=== PATIENT | female | born 1995 | race Caucasian/White ===

== ENCOUNTER 2017-12-08 14:39 | Emergency (ER) | payer MEDICARE ==
[~2017-12-08] VITALS: Ht 167.6 cm; Wt 136.5 kg
[2017-12-08 14:44] VITALS: BP 140/87
[2017-12-08 16:12] LABS: BASOPHILS % (AUTO) 0.6 % (0.0-2.0); EOSINOPHILS # (AUTO) 0.3 K/uL (0-0.4); HEMATOCRIT 30.3 % (36-48); LYMPHOCYTES # (AUTO) 1.8 K/uL (2.5-16.5); LYMPHOCYTES % (AUTO) 24.1 % (20.5-51.1); MEAN CORPUSCULAR HEMOGLOBIN 20 pg (27-31); MEAN CORPUSCULAR HGB CONC 30 g/dL (33-37); MEAN CORPUSCULAR VOLUME 67.8 fL (80-94); MONOCYTES # (AUTO) 0.6 K/uL (0.8-1.0); MONOCYTES % (AUTO) 7.2 % (1.7-9.3); NEUTROPHILS # (AUTO) 4.9 K/uL (1.8-7.7); NEUTROPHILS % (AUTO) 64.1 % (42.2-75.2); PLATELET COUNT (AUTO) 258 K/uL (140-450); RED BLOOD CELL COUNT(AUTO) 4.47 MIL/uL (4.20-5.40); RED CELL DISTRIBUTION WIDTH 19.3 % (11.6-13.7); WHITE BLOOD COUNT (AUTO) 7.7 K/uL (4.8-10.8)
[2017-12-08 16:30] LABS: BILIRUBIN,URINE 1+ (NEGATIVE); BLOOD, URINE 3+ (NEGATIVE); UGLUCOSE NEGATIVE (NEGATIVE)
[2017-12-08 16:34] LABS: ANION GAP 7.4 (8-16); CARBON DIOXIDE 29.5 mmol/L (21-32); CREATININE 0.7 mg/dL (0.6-1.3); POTASSIUM 3.9 mmol/L (3.5-5.1)
[2017-12-08 16:34] LABS: APPEARANCE,URINE HAZY (CLEAR); COLOR,URINE RED (YELLOW)
[2017-12-08 16:39] LABS: ALBUMIN 3.3 g/dL (3.4-5.0); TOTAL BILIRUBIN 0.2 mg/dL (0.0-1.0)
[2017-12-08 16:52] LABS: LEUKOCYTE ESTERASE ,URINE TRACE (NEGATIVE); NITRITE, URINE POSITIVE (NEGATIVE); RBC,URINE TOO NUMEROUS TO COUN /HPF (0-5)
[2017-12-08 17:12] VITALS: BP 138/84
== END 2017-12-08 17:12 | disposition home or self-care (01) ==
LOC: MED 14:39
DX: O46.91 Antepartum hemorrhage, unspecified, first trimester (principal); Z3A.01 Less than 8 weeks gestation of pregnancy
CPT/HCPCS: 36415; 76801; 80053; 81001; 81025; 84702; 85025; 86900; 86901; 87086; 99285; Q0092

== ENCOUNTER 2018-07-08 10:09 | Emergency (ER) | payer MEDICAID, MEDICARE ==
[~2018-07-08] VITALS: Ht 167.6 cm; Wt 128.8 kg
[2018-07-08 10:19] VITALS: BP 144/77
--- NOTE | 2018-07-08 10:26 | NUR ---
Patient ambulated to bed 5 at this time.
--- NOTE | 2018-07-08 10:27 | NUR ---
PATIENT PRESENTS TO ED WITH C/O SORE THROAT X 1 WEEK. PT STATES IT HURT WHEN SHE SWALLOWS AND THEY FEEL BRUISED. PT ALSO STATES SHE HAS DISCOMFORT AND DISCHARGE FOR VAGINAL AREA X 1 WEEK AND A HALF, FREQUENCY URINATION, NO BURNING WITH URINATION. DENIES N/V/D; SKIN IS PINK/WARM/DRY; AAOX4 WITH EVEN AND STEADY GAIT; LUNGS CLEAR BL; HR EVEN AND REGULAR; PT DENIES ANY FEVER, CP, SOB, OR COUGH AT THIS TIME; PATIENT STATES PAIN OF 10/10 AT THIS TIME; VSS; PATIENT POSITIONED FOR COMFORT; HOB ELEVATED; BEDRAILS UP X2; BED DOWN. ER MD MADE AWARE OF PT STATUS.
--- NOTE | 2018-07-08 10:36 | NUR ---
Patient being evaluated by physician at bedside.
[2018-07-08] MEDS ORDERED: KETOROLAC 60 MG/2 ML VIAL IM ONE (10:40)
--- NOTE | 2018-07-08 10:40 | NUR ---
PATIENT MOVED TO BED 6 AT THIS TIME.
[2018-07-08 11:00] VITALS: BP 136/75
--- NOTE | 2018-07-08 11:00 | NUR ---
Patient discharged with v/s stable. Written and verbal after care instructions given and explained. Patient alert, oriented and verbalized understanding of instructions. Ambulatory with steady gait. All questions addressed prior to discharge. ID band removed. Patient advised to follow up with PMD. Rx of MOTRIN, PREDNISONE given. Patient educated on indication of medication including possible reaction and side effects. Opportunity to ask questions provided and answered.
== END 2018-07-08 11:00 | disposition home or self-care (01) ==
LOC: MED 10:09
DX: J02.9 Acute pharyngitis, unspecified (principal)
CPT/HCPCS: 81002; 81025; 96372; 99283; J1885

== ENCOUNTER 2018-10-11 17:18 | Emergency (ER) | payer MEDICAID ==
[~2018-10-11] VITALS: Ht 167.6 cm; Wt 128.8 kg
[2018-10-11 17:28] VITALS: BP 100/50
--- NOTE | 2018-10-11 17:37 | NUR ---
VSS, PATIENT AMBULATED TO LOBBY, NO SIGNS OF DISTRESS.
--- NOTE | 2018-10-11 18:53 | NUR ---
C/O: SEVERE EAR PAIN ON THE LEFT EAR, THE PT CANT HEAR FROM THE LEFT EAR. OTHER EAR IS STARTING TO BE PAINFUL WELL. HAS HAD A COLD FOR A MONTH. DENIES N/V/D; SKIN IS PINK/WARM/DRY; AAOX4 WITH EVEN AND STEADY GAIT; LUNGS CLEAR BL; HR EVEN AND REGULAR; PT DENIES ANY FEVER, CP, SOB, OR COUGH AT THIS TIME; PATIENT STATES PAIN OF 10/10 AT THIS TIME; VSS; PATIENT POSITIONED FOR COMFORT; HOB ELEVATED; BEDRAILS UP X2; BED DOWN. ER MD MADE AWARE OF PT STATUS.
--- NOTE | 2018-10-11 19:10 | NUR ---
endorsed pt to a[facility] momin.
[2018-10-11 19:45] VITALS: BP 130/70
--- NOTE | 2018-10-11 19:45 | NUR ---
Patient discharged with v/s stable. Written and verbal after care instructions given and explained. Patient alert, oriented and verbalized understanding of instructions. Ambulatory with steady gait. All questions addressed prior to discharge. ID band removed. Patient advised to follow up with PMD. Rx of Amoxcillin 500mg given. Patient educated on indication of medication including possible reaction and side effects. Opportunity to ask questions provided and answered.
== END 2018-10-11 19:45 | disposition home or self-care (01) ==
LOC: MED 17:18
DX: H66.92 Otitis media, unspecified, left ear (principal)
CPT/HCPCS: 99283

== ENCOUNTER 2018-11-12 15:31 | Emergency (ER) | payer MEDICAID, OTHER ==
[~2018-11-12] VITALS: Ht 167.6 cm; Wt 129.3 kg
[2018-11-12 15:35] VITALS: BP 100/67
--- NOTE | 2018-11-12 15:35 | NUR ---
Robin boland in [facility] - 11/12/18 at 1621 by JACK DAVE AT BEDSIDE
[2018-11-12] MEDS ORDERED: NACL 0.9% 1,000 ML IV ONE (15:45)
[2018-11-12] MEDS ORDERED: ACETAMINOPHEN EXTRA STRENGTH 500 MG TAB PO ONE (15:45)
[2018-11-12] MEDS ORDERED: IBUPROFEN 600 MG TAB PO ONE (15:45)
[2018-11-12 16:07] LABS: BASOPHILS % (AUTO) 0.3 % (0.0-2.0); EOSINOPHILS % (AUTO) 0.1 % (0.0-4.0); HEMATOCRIT 32.3 % (36-48); HEMOGLOBIN 9.9 g/dL (12.0-16.0); LYMPHOCYTES # (AUTO) 0.7 K/uL (2.5-16.5); LYMPHOCYTES % (AUTO) 6.5 % (20.5-51.1); MEAN CORPUSCULAR HEMOGLOBIN 21 pg (27-31); MEAN CORPUSCULAR HGB CONC 31 g/dL (33-37); MEAN CORPUSCULAR VOLUME 69.4 fL (80-94); MONOCYTES % (AUTO) 9.2 % (1.7-9.3); NEUTROPHILS # (AUTO) 9.1 K/uL (1.8-7.7); NEUTROPHILS % (AUTO) 83.9 % (42.2-75.2); PLATELET COUNT (AUTO) 216 K/uL (140-450); RED BLOOD CELL COUNT(AUTO) 4.65 MIL/uL (4.20-5.40); RED CELL DISTRIBUTION WIDTH 19.4 % (11.6-13.7); WHITE BLOOD COUNT (AUTO) 10.9 K/uL (4.8-10.8)
[2018-11-12 16:08] LABS: APPEARANCE,URINE SL CLOUDY (CLEAR); BILIRUBIN,URINE NEGATIVE (NEGATIVE); BLOOD, URINE 2+ (NEGATIVE); COLOR,URINE YELLOW (YELLOW); LEUKOCYTE ESTERASE ,URINE 2+ (NEGATIVE); NITRITE, URINE POSITIVE (NEGATIVE); UGLUCOSE NEGATIVE (NEGATIVE)
--- NOTE | 2018-11-12 16:13 | NUR ---
23 YO F BIB SELF WITH CHIEF C/O FEVER, HEADACHE, BILATERAL LOWER BACK PAIN, INCREASED URINARY FREQUENCY X 1 DAY. PT CURRENT TEMPERATURE 102.7 ORAL. PT REPORTS NAUSEA, DENIES VOMITING, DIARRHEA. URINE SAMPLE OBTAINED.
[2018-11-12 16:17] LABS: WBC,URINE TOO MANY TO COUNT /HPF (0-5)
[2018-11-12 16:21] LABS: ALBUMIN 2.8 g/dL (3.4-5.0); ANION GAP 11.9 (8-16); CARBON DIOXIDE 23.7 mmol/L (21-32); CREATININE 0.9 mg/dL (0.6-1.3); POTASSIUM 3.6 mmol/L (3.5-5.1); TOTAL BILIRUBIN 0.4 mg/dL (0.0-1.0)
[2018-11-12] MEDS ORDERED: cefTRIAXone 1,000 MG VIAL ONE (16:46)
--- NOTE | 2018-11-12 17:04 | NUR ---
PT A/O X4. TEMP. 100.1 ORAL. MEDICATION ADMINISTERED ORDERED.
--- NOTE | 2018-11-12 18:13 | NUR ---
PT VERBALIZED FEELING BETTER, DENIES ANY PAIN AT THIS TIME. TEMP DECREASED TO 98.8 ORAL.
[2018-11-12 18:50] VITALS: BP 118/70
--- NOTE | 2018-11-12 18:50 | NUR ---
Patient discharged with v/s stable. Written and verbal after care instructions given and explained. Patient alert, oriented and verbalized understanding of instructions. Ambulatory with steady gait. All questions addressed prior to discharge. ID band removed. Patient advised to follow up with PMD. Rx of cipro, motrin given. Patient educated on indication of medication including possible reaction and side effects. Opportunity to ask questions provided and answered.
== END 2018-11-12 18:50 | disposition home or self-care (01) ==
LOC: MED 15:31
DX: N12 Tubulo-interstitial nephritis, not specified as acute or chronic (principal)
CPT/HCPCS: 36415; 80053; 81001; 81025; 85025; 87086; 87186; 96365; 99283; J0696; J7030; J7060

== ENCOUNTER 2019-02-10 17:02 | Emergency (ER) | payer MEDICAID, OTHER ==
[~2019-02-10] VITALS: Ht 167.6 cm; Wt 132.1 kg
[2019-02-10 17:18] VITALS: BP 137/78
--- NOTE | 2019-02-10 17:30 | NUR ---
C/O ABDOMINAL CRAMPING AND VAGINAL DISCHARGE X1 WKS, +N/V/D, +LIGHTHEADACHE. HX OF ANEMIA.DENIES N/V/D; SKIN IS PINK/WARM/DRY; AAOX4 WITH EVEN AND STEADY GAIT; LUNGS CLEAR BL; HR EVEN AND REGULAR; PT DENIES ANY FEVER, CP, SOB, OR COUGH AT THIS TIME; PATIENT STATES PAIN OF 9/10 AT THIS TIME; VSS; PATIENT POSITIONED FOR COMFORT; HOB ELEVATED; BEDRAILS UP X2; BED DOWN. ER MD MADE AWARE OF PT STATUS.
[2019-02-10 18:18] LABS: BASOPHILS % (AUTO) 0.4 % (0.0-2.0); EOSINOPHILS # (AUTO) 0.1 K/uL (0-0.4); EOSINOPHILS % (AUTO) 1.4 % (0.0-4.0); HEMOGLOBIN 10.8 g/dL (12.0-16.0); LYMPHOCYTES # (AUTO) 1.9 K/uL (2.5-16.5); LYMPHOCYTES % (AUTO) 22.2 % (20.5-51.1); MEAN CORPUSCULAR HEMOGLOBIN 22 pg (27-31); MEAN CORPUSCULAR HGB CONC 31 g/dL (33-37); MEAN CORPUSCULAR VOLUME 71.9 fL (80-94); MONOCYTES # (AUTO) 0.6 K/uL (0.8-1.0); MONOCYTES % (AUTO) 7.1 % (1.7-9.3); NEUTROPHILS % (AUTO) 68.9 % (42.2-75.2); PLATELET COUNT (AUTO) 213 K/uL (140-450); RED BLOOD CELL COUNT(AUTO) 4.86 MIL/uL (4.20-5.40); WHITE BLOOD COUNT (AUTO) 8.7 K/uL (4.8-10.8)
[2019-02-10 18:26] LABS: APPEARANCE,URINE CLEAR (CLEAR); BILIRUBIN,URINE NEGATIVE (NEGATIVE); BLOOD, URINE NEGATIVE (NEGATIVE); COLOR,URINE YELLOW (YELLOW); LEUKOCYTE ESTERASE ,URINE NEGATIVE (NEGATIVE); NITRITE, URINE NEGATIVE (NEGATIVE); UGLUCOSE NEGATIVE (NEGATIVE)
--- NOTE | 2019-02-10 18:29 | NUR ---
Dr. Benites, accompanied by female harvest field ticketer, at bedside for pelvic exam.
[2019-02-10 18:32] LABS: ALBUMIN 3.2 g/dL (3.4-5.0); ANION GAP 11.6 (8-16); CREATININE 0.7 mg/dL (0.6-1.3); POTASSIUM 3.6 mmol/L (3.5-5.1); TOTAL BILIRUBIN 0.2 mg/dL (0.0-1.0)
--- NOTE | 2019-02-10 19:09 | NUR ---
ENDORSED TO PM NURSE.
[2019-02-10 20:14] VITALS: BP 137/78
--- NOTE | 2019-02-10 20:14 | NUR ---
Patient discharged with v/s stable. Written and verbal after care instructions given and explained. Patient verbalized understanding. Ambulatory with steady gait. All questions addressed prior to discharge. Advised to follow up with PMD.
[2019-02-12 06:25] LABS: CHLAMYDIA TRACHOMATIS AMP DNA Negative (Negative)
== END 2019-02-10 20:14 | disposition home or self-care (01) ==
LOC: MED 17:02
DX: O20.0 Threatened abortion (principal); Z3A.01 Less than 8 weeks gestation of pregnancy
CPT/HCPCS: 36415; 76801; 80053; 81003; 81025; 84702; 85025; 87210; 87491; 99284; Q0092

== ENCOUNTER 2019-02-18 18:11 | Emergency (ER) | payer OTHER ==
[~2019-02-18] VITALS: Ht 167.6 cm; Wt 131.1 kg
[2019-02-18 18:48] VITALS: BP 133/78
--- NOTE | 2019-02-18 19:30 | NUR ---
23/F CC DIZZINESS. CURRENTLY 5 WEEKS. A0. AOX4. ABLE TO VERBALIZE NEEDS. NO SIGNS OF ACUTE DISTRESS AT THIS TIME. WILL CONTINUE TO OBSERVE.
[2019-02-18 19:33] LABS: BASOPHILS % (AUTO) 0.5 % (0.0-2.0); EOSINOPHILS # (AUTO) 0.1 K/uL (0-0.4); EOSINOPHILS % (AUTO) 1.2 % (0.0-4.0); HEMOGLOBIN 11.2 g/dL (12.0-16.0); LYMPHOCYTES # (AUTO) 1.4 K/uL (2.5-16.5); LYMPHOCYTES % (AUTO) 18.4 % (20.5-51.1); MEAN CORPUSCULAR HEMOGLOBIN 23 pg (27-31); MEAN CORPUSCULAR HGB CONC 31 g/dL (33-37); MEAN CORPUSCULAR VOLUME 72.4 fL (80-94); MONOCYTES # (AUTO) 0.4 K/uL (0.8-1.0); MONOCYTES % (AUTO) 5.5 % (1.7-9.3); NEUTROPHILS # (AUTO) 5.5 K/uL (1.8-7.7); NEUTROPHILS % (AUTO) 74.4 % (42.2-75.2); PLATELET COUNT (AUTO) 221 K/uL (140-450); RED BLOOD CELL COUNT(AUTO) 4.97 MIL/uL (4.20-5.40); RED CELL DISTRIBUTION WIDTH 21.6 % (11.6-13.7); WHITE BLOOD COUNT (AUTO) 7.4 K/uL (4.8-10.8)
--- NOTE | 2019-02-18 19:38 | NUR ---
US AT BEDSIDE
[2019-02-18 19:48] LABS: APPEARANCE,URINE CLEAR (CLEAR); BILIRUBIN,URINE 1+ (NEGATIVE); BLOOD, URINE NEGATIVE (NEGATIVE); COLOR,URINE YELLOW (YELLOW); LEUKOCYTE ESTERASE ,URINE NEGATIVE (NEGATIVE); NITRITE, URINE NEGATIVE (NEGATIVE); UGLUCOSE NEGATIVE (NEGATIVE)
[2019-02-18 21:35] VITALS: BP 133/78
== END 2019-02-18 21:32 | disposition home or self-care (01) ==
LOC: MED 18:11
DX: O26.891 Other specified pregnancy related conditions, first trimester (principal); R10.30 Lower abdominal pain, unspecified; R42 Dizziness and giddiness; Z3A.01 Less than 8 weeks gestation of pregnancy
CPT/HCPCS: 36415; 76817; 81003; 84702; 85025; 86900; 86901; 99284; Q0092

== ENCOUNTER 2019-03-05 23:17 | Emergency (ER) | payer OTHER ==
[~2019-03-05] VITALS: Ht 167.6 cm; Wt 132.9 kg
[2019-03-05 23:17] VITALS: BP 122/92
--- NOTE | 2019-03-05 23:19 | NUR ---
PT BIBA WITH C/O DIZZINESS, N/V , EPIGASTRIC PAIN TODAY.PT STATED SHE IS , 2 MONTHS LMP IS December. PT IS ALERT AND ORIENT X 4. PT PAIN LEVEL IS 8/10 AT THIS TIME. PT STATED SHE IS NOT CURRENTLY WITH AN OBGYN FOR OUTPATIENT CARE. PT IS CURRENTLY TAKING IRON PILLS BUT DENIES TAKING VITAMINS. ER MD MADE AWARE OF STATUS, SAFETY MEASURES IN PLACE. CONTINUE TO MONITOR. NKA PREVIOUS MEDICAL HX IS ANEMIA
--- NOTE | 2019-03-05 23:23 | NUR ---
PT BIBA TO BED 08.
[2019-03-05 23:51] LABS: BASOPHILS # (AUTO) 0.1 K/uL (0.00-0.22); BASOPHILS % (AUTO) 0.6 % (0.0-2.0); EOSINOPHILS # (AUTO) 0.1 K/uL (0-0.4); HEMATOCRIT 35.9 % (36-48); MONOCYTES # (AUTO) 0.6 K/uL (0.8-1.0); NEUTROPHILS % (AUTO) 70.8 % (42.2-75.2)
[2019-03-05 23:52] LABS: BILIRUBIN,URINE NEGATIVE (NEGATIVE); BLOOD, URINE NEGATIVE (NEGATIVE); COLOR,URINE YELLOW (YELLOW); LEUKOCYTE ESTERASE ,URINE TRACE (NEGATIVE); NITRITE, URINE NEGATIVE (NEGATIVE); UGLUCOSE NEGATIVE (NEGATIVE)
[2019-03-05 23:56] LABS: APPEARANCE,URINE CLEAR (CLEAR)
[2019-03-05 23:57] LABS: EOSINOPHILS % (AUTO) 1.3 % (0.0-4.0); HEMOGLOBIN 11.3 g/dL (12.0-16.0); LYMPHOCYTES % (AUTO) 20.9 % (20.5-51.1); MEAN CORPUSCULAR HEMOGLOBIN 23 pg (27-31); MEAN CORPUSCULAR HGB CONC 32 g/dL (33-37); MEAN CORPUSCULAR VOLUME 73.7 fL (80-94); MONOCYTES % (AUTO) 6.4 % (1.7-9.3); NEUTROPHILS # (AUTO) 6.6 K/uL (1.8-7.7); PLATELET COUNT (AUTO) 207 K/uL (140-450); RED BLOOD CELL COUNT(AUTO) 4.87 MIL/uL (4.20-5.40); RED CELL DISTRIBUTION WIDTH 21.8 % (11.6-13.7); WHITE BLOOD COUNT (AUTO) 9.4 K/uL (4.8-10.8)
[2019-03-06 00:06] LABS: ANION GAP 10.4 (8-16); CARBON DIOXIDE 26.2 mmol/L (21-32); CREATININE 0.8 mg/dL (0.6-1.3); POTASSIUM 3.6 mmol/L (3.5-5.1)
[2019-03-06 00:10] LABS: RBC,URINE 0-5 /HPF (0-5)
[2019-03-06 00:11] LABS: CALCIUM OXALATE CRYSTALS,UR 0-10 /HPF (None Seen)
[2019-03-06 01:22] VITALS: BP 119/70
--- NOTE | 2019-03-06 01:22 | NUR ---
Patient discharged with v/s stable. Written and verbal after care instructions given and explained. Patient alert, oriented and verbalized understanding of instructions. Ambulatory with steady gait. All questions addressed prior to discharge. ID band removed. Patient advised to follow up with PMD. Rx of Pepcid and Macrobid given. Patient educated on indication of medication including possible reaction and side effects. Opportunity to ask questions provided and answered.
== END 2019-03-06 01:22 | disposition home or self-care (01) ==
LOC: MED 23:17
DX: O26.891 Other specified pregnancy related conditions, first trimester (principal); K29.70 Gastritis, unspecified, without bleeding; O23.41 Unspecified infection of urinary tract in pregnancy, first trimester; R06.02 Shortness of breath; Z3A.08 8 weeks gestation of pregnancy
CPT/HCPCS: 36415; 76801; 80048; 81001; 84702; 85025; 86900; 86901; 87086; 99284; Q0092

== ENCOUNTER 2019-04-24 05:42 | Emergency (ER) | payer OTHER ==
[~2019-04-24] VITALS: Ht 167.6 cm; Wt 134.7 kg
[2019-04-24 05:54] VITALS: BP 121/57
[2019-04-24] MEDS ORDERED: ACETAMINOPHEN EXTRA STRENGTH 500 MG TAB PO ONE (07:50)
[2019-04-24 08:28] VITALS: BP 121/57
== END 2019-04-24 08:28 | disposition home or self-care (01) ==
LOC: MED 05:42
DX: O23.42 Unspecified infection of urinary tract in pregnancy, second trimester (principal); O99.012 Anemia complicating pregnancy, second trimester; Z3A.15 15 weeks gestation of pregnancy
CPT/HCPCS: 81002; 81025; 87210; 99283

== ENCOUNTER 2019-08-20 20:41 | Emergency (ER) | payer MEDICAID, OTHER ==
[~2019-08-20] VITALS: Ht 170.2 cm; Wt 127.0 kg
[2019-08-20 20:50] VITALS: BP 120/74
--- NOTE | 2019-08-20 20:50 | NUR ---
TO BED # 01 AMBULATORY
--- NOTE | 2019-08-20 21:27 | NUR ---
PT AMBULATED TO BED 9
--- NOTE | 2019-08-20 21:38 | NUR ---
HEART TONE WAS PERFORMED BY L&D RN, 155. DR MAHONEY MADE AWARE.
--- NOTE | 2019-08-20 22:00 | NUR ---
24/F PRESENTS TO ED, C/O COUGH, SORE THROAT, HEADACHE, X3 DAYS. PT DENIES FEVER/CHILLS. PT IS 31 WEEKS , A0. PT AWAKE AND ALERT, SKIN NORMAL COLOR WARM AND DRY, RR EVEN AND UNLABORED. LUNG SOUNDS CLEAR BL. S1S2 PRESENT. BS ACTIVE X4, ABD SOFT GRAVID NONTENDER HX GESTATIONAL DM, ANEMIA; DENIES RX OTC VITAMINS, IRON
--- NOTE | 2019-08-20 22:16 | NUR ---
Patient discharged with v/s stable. Written and verbal after care instructions given and explained. Patient alert, oriented and verbalized understanding of instructions. Ambulatory with steady gait. All questions addressed prior to discharge. ID band removed. Patient advised to follow up with PMD. Rx of tamiflu given. Patient educated on indication of medication including possible reaction and side effects. Opportunity to ask questions provided and answered.
[2019-08-20 22:17] VITALS: BP 118/72
== END 2019-08-20 22:17 | disposition home or self-care (01) ==
LOC: MED 20:41
DX: O26.893 Other specified pregnancy related conditions, third trimester (principal); J10.1 Influenza due to other identified influenza virus with other respiratory manifestations; Z3A.32 32 weeks gestation of pregnancy
CPT/HCPCS: 87804; 99283

== ENCOUNTER 2020-02-25 11:25 | Emergency (ER) | payer MEDICAID ==
[~2020-02-25] VITALS: Ht 167.6 cm; Wt 117.9 kg
[2020-02-25 11:30] VITALS: BP 156/110
--- NOTE | 2020-02-25 11:37 | NUR ---
PATIENT AMBULATED TO BED 6.
--- NOTE | 2020-02-25 11:40 | NUR ---
PT PRESENTS TO THE ER C/O SHARP EPIGASTRIC PAIN ACCOMPANIED BY NAUSEA AND 10 EPISODES OF VOMITING SINCE LAST NIGHT. REPORTS LBM WAS TWO DAYS AGO. DENIES DIARRHEA, FEVER, COUGH, SOB, BACK PAIN, OR CHEST PAIN. AAOX4 WITH EVEN AND STEADY GAIT; PATIENT STATES PAIN OF 8/10 AT THIS TIME; VSS; PATIENT POSITIONED FOR COMFORT; HOB ELEVATED; BEDRAILS UP X1; BED DOWN. ER MD MADE AWARE OF PT STATUS.
[2020-02-25] MEDS ORDERED: ONDANSETRON 4 MG ODT PO ONE (11:50)
[2020-02-25] MEDS ORDERED: ALUMINUM HYD/MAG/SIMETHICONE 30 ML UDC PO ONE (11:50)
[2020-02-25] MEDS ORDERED: FAMOTIDINE 20 MG TAB PO ONE (11:50)
[2020-02-25 12:08] LABS: BASOPHILS % (AUTO) 0.2 % (0.0-2.0); EOSINOPHILS % (AUTO) 0.1 % (0.0-4.0); HEMATOCRIT 36.7 % (36-48); HEMOGLOBIN 11.8 g/dL (12.0-16.0); LYMPHOCYTES % (AUTO) 9.7 % (20.5-51.1); MEAN CORPUSCULAR HEMOGLOBIN 27 pg (27-31); MEAN CORPUSCULAR HGB CONC 32 g/dL (33-37); MEAN CORPUSCULAR VOLUME 84.9 fL (80-94); MONOCYTES # (AUTO) 0.3 K/uL (0.8-1.0); MONOCYTES % (AUTO) 3.3 % (1.7-9.3); NEUTROPHILS # (AUTO) 8.6 K/uL (1.8-7.7); NEUTROPHILS % (AUTO) 86.7 % (42.2-75.2); PLATELET COUNT (AUTO) 222 K/uL (140-450); RED BLOOD CELL COUNT(AUTO) 4.32 MIL/uL (4.20-5.40); RED CELL DISTRIBUTION WIDTH 14.4 % (11.6-13.7)
[2020-02-25 12:24] LABS: ALBUMIN 3.5 g/dL (3.4-5.0); ANION GAP 13.4 (8-16); CARBON DIOXIDE 24.4 mmol/L (21-32); CREATININE 0.8 mg/dL (0.6-1.3); POTASSIUM 3.8 mmol/L (3.5-5.1); TOTAL BILIRUBIN 0.3 mg/dL (0.0-1.0)
--- NOTE | 2020-02-25 13:24 | NUR ---
PT LEFT WITHOUT HER DC PAPERS
[2020-02-25 13:25] VITALS: BP 142/98
== END 2020-02-25 13:24 | disposition home or self-care (01) ==
LOC: MED 11:25
DX: R10.13 Epigastric pain (principal); R11.2 Nausea with vomiting, unspecified; K21.9 Gastro-esophageal reflux disease without esophagitis; D64.9 Anemia, unspecified; Z98.890 Other specified postprocedural states
CPT/HCPCS: 36415; 80053; 83690; 85025; 99284; Q0162

== ENCOUNTER 2022-07-07 08:26 | Emergency (ER) | payer MEDICAID ==
[~2022-07-07] VITALS: Ht 167.6 cm; Wt 122.5 kg
[2022-07-07 08:39] VITALS: BP 116/65
--- NOTE | 2022-07-07 08:52 | NUR ---
PATIENT PRESENTS TO ED WITH HEADACHE X 2 DAYS . DENIES N/V/D; SKIN IS PINK/WARM/DRY; AAOX4 WITH EVEN AND STEADY GAIT; LUNGS CLEAR BL; HR EVEN AND REGULAR; PT DENIES ANY FEVER, CP, SOB, OR COUGH AT THIS TIME; PATIENT STATES PAIN OF 6/10 AT THIS TIME; VSS; PATIENT POSITIONED FOR COMFORT; HOB ELEVATED; BEDRAILS UP X2; BED DOWN. ER MD MADE AWARE OF PT STATUS.
[2022-07-07 09:47] LABS: APPEARANCE,URINE SL CLOUDY (CLEAR); BILIRUBIN,URINE NEGATIVE (NEGATIVE); BLOOD, URINE NEGATIVE (NEGATIVE); COLOR,URINE AMBER (YELLOW); LEUKOCYTE ESTERASE ,URINE TRACE (NEGATIVE); NITRITE, URINE NEGATIVE (NEGATIVE); UGLUCOSE NEGATIVE (NEGATIVE)
[2022-07-07 10:01] LABS: OTHER CASTS, URINE None Seen /LPF (None Seen); RBC,URINE 0-5 /HPF (0-5)
[2022-07-07] MEDS ORDERED: ALBU0.0912 IH (10:06)
[2022-07-07 10:22] VITALS: BP 111/66
--- NOTE | 2022-07-07 10:28 | NUR ---
Patient discharged with v/s stable. Written and verbal after care instructions given and explained. Patient alert, oriented and verbalized understanding of instructions. Ambulatory with steady gait. All questions addressed prior to discharge. ID band removed. Patient advised to follow up with PMD. Rx of PROVENTIL HFA given. Patient educated on indication of medication including possible reaction and side effects. Opportunity to ask questions provided and answered.
== END 2022-07-07 10:28 | disposition home or self-care (01) ==
LOC: MED 08:26
DX: J06.9 Acute upper respiratory infection, unspecified (principal); J45.909 Unspecified asthma, uncomplicated; K21.9 Gastro-esophageal reflux disease without esophagitis
CPT/HCPCS: 81001; 81025; 87086; 99283

== ENCOUNTER 2024-01-09 08:16 | Emergency (ER) | payer MEDICAID ==
[~2024-01-09] VITALS: Ht 170.2 cm; Wt 115.7 kg
[~2024-01-09 08:16] MED LIST: ALBU0.0912 IH
[2024-01-09 08:18] VITALS: BP 135/93; PULSE 74; RESP 18; TEMP 97.3; O2SAT 98
[2024-01-09 09:06] LABS: ANION GAP 12.5 (8-16); CALCIUM 8.1 mg/dL (8.5-10.1); CARBON DIOXIDE 23.2 mmol/L (21-32); CREATININE 0.7 mg/dL (0.6-1.3); POTASSIUM 3.7 mmol/L (3.5-5.1)
[2024-01-09 09:08] LABS: BASOPHILS # (AUTO) 0.1 K/uL (0.00-0.22); EOSINOPHILS # (AUTO) 0.2 K/uL (0-0.4); EOSINOPHILS % (AUTO) 2.9 % (0.0-4.0); HEMATOCRIT 37.5 % (36-48); HEMOGLOBIN 12.3 g/dL (12.0-16.0); LYMPHOCYTES # (AUTO) 1.8 K/uL (2.5-16.5); LYMPHOCYTES % (AUTO) 23.6 % (20.5-51.1); MEAN CORPUSCULAR HEMOGLOBIN 27 pg (27-31); MEAN CORPUSCULAR HGB CONC 33 g/dL (33-37); MEAN CORPUSCULAR VOLUME 81.5 fL (80-94); MONOCYTES # (AUTO) 0.5 K/uL (0.8-1.0); MONOCYTES % (AUTO) 6.1 % (1.7-9.3); NEUTROPHILS # (AUTO) 5.1 K/uL (1.8-7.7); NEUTROPHILS % (AUTO) 66.4 % (42.2-75.2); PLATELET COUNT (AUTO) 208 K/uL (140-450); RED CELL DISTRIBUTION WIDTH 15.7 % (11.6-13.7); WHITE BLOOD COUNT (AUTO) 7.7 K/uL (4.8-10.8)
[2024-01-09 09:12] LABS: ALBUMIN 3.4 g/dL (3.4-5.0); BILIRUBIN,DIRECT 0.1 mg/dL (0.0-0.3); TOTAL BILIRUBIN 0.3 mg/dL (0.0-1.0); TOTAL PROTEIN, SERUM 7.3 g/dL (6.4-8.2)
[2024-01-09] MEDS ORDERED: POLY17PD72 PO (09:32)
[2024-01-09] MEDS ORDERED: CETI-24 PO (09:32)
[2024-01-09] MEDS ORDERED: ALBU0.0912 IH (09:32)
== END 2024-01-09 10:02 | disposition home or self-care (01) ==
LOC: MED 08:16
DX: K59.00 Constipation, unspecified (principal); M54.50 Low back pain, unspecified; F12.90 Cannabis use, unspecified, uncomplicated; R07.9 Chest pain, unspecified; K21.9 Gastro-esophageal reflux disease without esophagitis; J45.909 Unspecified asthma, uncomplicated; R05.9 Cough, unspecified; Z79.899 Other long term (current) drug therapy
CPT/HCPCS: 36415; 71045; 80048; 80076; 81025; 84443; 85025; 99284; Q0092

== ENCOUNTER 2024-02-19 08:11 | Emergency (ER) | payer MEDICAID ==
[~2024-02-19] VITALS: Ht 170.2 cm; Wt 118.2 kg
[~2024-02-19 08:11] MED LIST changes: +CETI-24 PO; +POLY17PD72 PO
[2024-02-19 08:16] VITALS: BP 116/74; PULSE 64; RESP 18; TEMP 98.1; O2SAT 96
[2024-02-19] MEDS ORDERED: ACET-10509 PO (08:55)
[2024-02-19] MEDS ORDERED: LORA10TA19 PO (09:09)
[2024-02-19] MEDS ORDERED: FLONAS NS (09:11)
== END 2024-02-19 09:16 | disposition home or self-care (01) ==
LOC: MED 08:11
DX: O29.41 Spinal and epidural anesthesia induced headache during pregnancy, first trimester (principal); O99.511 Diseases of the respiratory system complicating pregnancy, first trimester; J45.909 Unspecified asthma, uncomplicated; O99.611 Diseases of the digestive system complicating pregnancy, first trimester; K21.9 Gastro-esophageal reflux disease without esophagitis; Z3A.01 Less than 8 weeks gestation of pregnancy; Z79.2 Long term (current) use of antibiotics; Z79.899 Other long term (current) drug therapy
CPT/HCPCS: 64450; 99284

== ENCOUNTER 2024-04-16 22:05 | Emergency (ER) | payer MEDICAID ==
[~2024-04-16] VITALS: Ht 170.2 cm; Wt 120.2 kg
[~2024-04-16 22:05] MED LIST changes: +ACET500T99 PO; +FLONAS NS; +LORA10TA19 PO
[2024-04-16 22:30] VITALS: BP 145/90; PULSE 72; RESP 16; TEMP 98.1; O2SAT 100
[2024-04-17 00:27] LABS: BILIRUBIN,URINE NEGATIVE (NEGATIVE); BLOOD, URINE NEGATIVE (NEGATIVE); COLOR,URINE YELLOW (YELLOW); LEUKOCYTE ESTERASE ,URINE NEGATIVE (NEGATIVE); NITRITE, URINE NEGATIVE (NEGATIVE); PROTEIN,URINE TRACE (NEGATIVE); UGLUCOSE NEGATIVE (NEGATIVE); UROBILINOGEN,URINE 0.2 EU/dL (0.2 - 1)
[2024-04-17 00:45] LABS: APPEARANCE,URINE SLIGHTLY HAZY (CLEAR)
[2024-04-17 00:46] LABS: BACTERIA,URINE 1+ /HPF (None Seen); CALCIUM OXALATE CRYSTALS,UR 0-10 /HPF (None Seen); RBC,URINE 0-5 /HPF (0-5); WBC,URINE 0-5 /HPF (0-5)
[2024-04-17 01:14] VITALS: BP 145/90; PULSE 72; RESP 16; TEMP 98.1; O2SAT 100
[2024-04-17] MEDS ORDERED: LABE200T12 PO (01:35)
[2024-04-17] MEDS ORDERED: NITR100C7 PO (01:41)
== END 2024-04-17 01:39 | disposition home or self-care (01) ==
LOC: MED 22:05
DX: O23.42 Unspecified infection of urinary tract in pregnancy, second trimester (principal); N39.0 Urinary tract infection, site not specified; O10.912 Unspecified pre-existing hypertension complicating pregnancy, second trimester; O29.42 Spinal and epidural anesthesia induced headache during pregnancy, second trimester; O99.612 Diseases of the digestive system complicating pregnancy, second trimester; K21.9 Gastro-esophageal reflux disease without esophagitis; O99.512 Diseases of the respiratory system complicating pregnancy, second trimester; J45.909 Unspecified asthma, uncomplicated; Z3A.15 15 weeks gestation of pregnancy; Z79.899 Other long term (current) drug therapy
CPT/HCPCS: 81001; 81025; 99283